=== PATIENT | female | born 1965 | race Two or more races ===

== ENCOUNTER 2016-10-20 14:16 | Emergency (ER) | payer OTHER | END 2016-10-20 16:40 | disposition home or self-care (01) | LOC: CED 14:16 → CFTX 14:16 | DX: L03.116 Cellulitis of left lower limb (principal); R03.0 Elevated blood-pressure reading, without diagnosis of hypertension; Z86.14 Personal history of Methicillin resistant Staphylococcus aureus infection | CPT/HCPCS: 99282 ==

== ENCOUNTER 2016-11-03 13:23 | Emergency (ER) | payer OTHER | END 2016-11-03 15:25 | disposition home or self-care (01) | LOC: CED 13:23 | DX: L02.415 Cutaneous abscess of right lower limb (principal) | CPT/HCPCS: 99282 ==